=== PATIENT | male | born 1960 | race Caucasian/White ===

== ENCOUNTER 2017-07-28 16:20 | Observation (INO) ==
[2017-07-28] MEDS ORDERED: IOPAMIDOL 100 ML BOTTLE IV ONE (16:21)
[2017-07-28] MEDS ORDERED: 0.9 % SODIUM CHLORIDE 250 ML IV SCH (17:00)
--- NOTE | 2017-07-28 17:00 | Emergency Department Note ---
General Adult HPI - General Chief complaint: Shortness of Breath/Dyspnea Stated complaint: SOB Time Seen by Provider: 07/28/17 16:34 Source: patient Mode of arrival: ambulatory Limitations: no limitations - History of Present Illness HPI Narrative: 57-year-old male presents with shortness of breath 2 days. He states with any exertion he has shortness of breath. He denies any cough. He does smoke. He went to [facility] and had some blood work done and was told to come back because he has an elevated d-dimer and a hemoglobin of 6.1. His last hemoglobin was 14. He denies any black tarry stools or any blood in his urine. He has not had any bleeding that he knows of. He denies any abdominal pain at this time but states sometimes he has some cramping in his lower abdomen. He does have some wheezing. He is tachycardic. No chest pain. No history of blood clots. He does not take any medications. He does not have a primary care provider. He is not diabetic. He denies any lower extremity pain. He states he was on his way back to work before he was told he needed to come here Patient states he drinks 4 times a week about 6-7 beers a day. He does not consider himself an alcoholic. He states he used to take ibuprofen pretty frequently but has not in the last month. He states he has never noticed any dark stools. He denies any nausea or vomiting. - Related Data Home Medications Medication Instructions Recorded Confirmed No Known Home Meds [No Known Home 07/28/17 07/28/17 Meds] Allergies Allergy/AdvReac Type Severity Reaction Status Date / Time No Known Drug Allergies Allergy Unverified 07/28/17 14:35 Review of Systems All systems ED: reviewed and negative except as stated. Past Medical History - Past Medical History Medical history: Reports: non-contributory. Denies: COPD, DM Psychiatric history: Reports: no psych history Surgical history ED: Reports: non-contributory Family history: Reports: non-contributory - Social History smoking status: Current every day smoker Physical Exam Limitations: no limitations General appearance: alert, in no apparent distress Head: atraumatic Eye: Present: normal appearance. Absent: conjunctival injection Neck: Present: normal inspection, full ROM Chest: Present: normal inspection, symmetric chest wall rise Respiratory: Present: wheezes (upper lobes), other (decreased lung sounds right lower lobe) Cardiovascular: Present: tachycardia, normal heart sounds Abdominal: Present: soft, normal bowel sounds. Absent: tenderness Rectal: Present: normal rectal tone, heme (-) stool Extremities: Present: normal inspection, full ROM Neurological: Present: alert, oriented X3 Psychiatric: Present: normal affect, normal mood Skin: Present: warm, dry, intact Course Vital Signs Temperature 97.4 F 07/28/17 16:22 Pulse Rate 103 H 07/28/17 16:22 Respiratory Rate 24 H 07/28/17 16:22 Blood Pressure 170/82 07/28/17 16:22 Pulse Oximetry (%) 97 07/28/17 16:22 Temperature 97.4 F 07/28/17 16:22 Pulse Rate 101 H 07/28/17 18:24 Respiratory Rate 15 07/28/17 16:39 Blood Pressure 135/61 07/28/17 18:24 Pulse Oximetry (%) 96 07/28/17 18:24 Medical Decision Making - [facility] Narrative Medical decision making narrative: No obvious signs of bleeding at this time. Chest CT was negative for PE. Vitals have been stable but he has been tachycardic. No hypotension. He is symptomatic from being anemic and should be transfused and watched. He will be admitted observation. - Lab Data Lab results reviewed: Yes I reviewed the patient's lab results. Lab Results 07/28/17 Range/Units 17:00 POC Hct 19.0 L* (41.0-55.0) % POC Sodium 141 (133-145) mmol/L POC Potassium 4.1 (3.3-5.1) mmol/L POC Chloride 103 (96-108) mmol/L POC Total CO2 27 (22-30) mmol/L POC BUN 5 L (6-20) mg/dl POC Creatinine 0.9 (0.7-1.2) mg/dl POC Glucose 143 H (70-105) mg/dL POC WB Ioniz Calcium 1.00 L (1.16-1.32) mmol/L - Radiology Data Radiology results reviewed: Yes I reviewed the patient's radiology results. negative Disposition Pt seen by TUFTING CREELER/PA only: Yes Clinical Impression: Shortness of breath, Anemia Disposition: Xfer As Outpt/Obs ([facility]) Condition: Fair Referrals: No,PCP [Primary Care Provider] -
--- NOTE | 2017-07-28 18:17 | Cat Scan Report ---
CLINICAL INFORMATION: Shortness of breath and elevated d-dimer COMPARISON: None. TECHNIQUE: 80 cc of Isovue-300 were injected intravenously. Using SmartPrep to maximize pulmonary artery opacification, 2.5 mm helical slices were obtained from the lung apices through the lung bases. Following reconstruction, 2.5 mm sagittal, coronal, and axial reformations were processed. The exam was reviewed at mediastinal, lung, and bone windows. The exam was performed using radiation dose optimization techniques including, but not limited to, automated exposure control, adjustment of the mA and/or kV according to patient size and use of iterative reconstruction technique. FINDINGS: The pulmonary arteries are suboptimally opacified but there is no evidence of embolus. Thoracic aorta is normal in contour and caliber. There is no adenopathy in the mediastinal hilar or axillary region. The thyroid is normal. The heart is normal in size configuration without appreciable plaque in the coronary arteries. Pulmonary parenchymal windows show the lungs to be clear. There are no effusions. Bones and soft tissues the chest wall are normal IMPRESSION: Normal Interpreted and Authenticated by: Fan Snyder 07/28/17
[2017-07-28 20:23] LABS: Iron 7 mcg/dl (61-157); Transferrin % Saturation 1 % (20-50); Unsaturated Iron Binding 370 mcg/dL (112-346)
--- NOTE | 2017-07-28 20:50 | Emergency Department Note ---
ED Note Addendum Note Addendum: patient seen by candi and agree with need to consult hospitalist, Dr Dickinson, who is here to evaluate and patient will be admitted for anemia
[2017-07-28] MEDS ORDERED: ACETAMINOPHEN 325 MG TABLET PO PRN (21:27)
[2017-07-28] MEDS ORDERED: ONDANSETRON 4 MG/2 ML VIAL IV PRN (21:27)
--- NOTE | 2017-07-28 23:05 | Internal Med History&Physical ---
Medical - H&P: HPI Patient information: Note initiated : 07/28/17 at 11:04 pm Service Date, if different from initiated Date: [] Patient: Elijah Baker 57 y/o M admitted on 07/28/17 for Shortness of breath. Chief Complaint: [] Chief complaint: HAQUE and near syncope History of present illness: Mr. Baker is a 57 year old M comes in to [facility] complaining of HAQUE and lightheaded x 2 days He was sent over from there to [facility] after the labs done at [facility] showed elevated d-dimer and a hemoglobin of 6.1. His last hemoglobin was 14. February 2017. 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 He denies any black tarry stools or any blood in his urine. He has not had any bleeding that he knows of. He denies any abdominal pain at this time but states sometimes he has some cramping in his lower abdomen. He does have some wheezing. He is tachycardic. No chest pain. No history of blood clots. He does not take any medications. He does not have a primary care provider. He is not diabetic. He denies any lower extremity pain. He states he was on his way back to work before he was told he needed to come here Patient states he drinks 4 times a week about 6-7 beers a day. He does not consider himself an alcoholic. He states he used to take ibuprofen pretty frequently but has not in the last month. He states he has never noticed any dark stools. He denies any nausea or vomiting. Pt goes to bar and drinks bud light pints over about 4-5 hours at bar. Says is not drunk. Still safe to drive when he leaves. Doesnt drink at home or alone. no hard liquor - Constitutional Constitutional: Present: fatigue, weakness. Absent: anorexia - Cardiovascular Cardiovascular: Present: dyspnea on exertion. Absent: edema - Respiratory Respiratory: Present: dyspnea on exertion. Absent: cough, chest congestion - Gastrointestinal Gastrointestinal: Present: abdominal pain (lower abdomen), excessive flatus ( tonight only). Absent: change in bowel habits, change in stool character, coffee ground emesis, constipation, dyspepsia, dysphagia, heartburn, hematemesis , hematochezia, loose stools, nausea, vomiting - Hematologic/Lymphatic Hematologic/Lymphatic: Absent: easy bleeding, easy bruising Medical - H&P: PMH Medical history: denies Surgical history: knee surgery ligaments repairs bilat Family history: reviewed and not pertinent (no FH bleeding or clotting disorder) Social history: pt has been bombing house for bed bugs. Lives with his no kids. Went to [facility] and they found a bed bug in room there. He came here and did not mention bed bugs here nor there. When asked about it he admits he has bed bugs at home and thinks might be better with repeated bombs at home. Says he read about bed bugs and understands it could be a prolonged problem. Smoking status: Current some day smoker Have you smoked in the last 12 months: Yes Alcohol use: heavy (7 beers 4 times a week) Medical - H&P: Meds Home Medications Medication Instructions Recorded Confirmed Type No Known Home Meds [No Known Home 07/28/17 07/28/17 History Meds] Allergies Allergy/AdvReac Type Severity Reaction Status Date / Time No Known Drug Allergies Allergy Unverified 07/28/17 14:35 Medical - H&P: Exam - Constitutional Vitals: Temp Pulse Resp BP Pulse Ox 97.4 F 97 H 15 124/62 97 07/28/17 21:25 07/28/17 21:25 07/28/17 21:25 07/28/17 21:25 07/28/17 21:25 General appearance: cooperative, morbidly obese - Neurological Exam Neurological exam: Present: alert, altered, oriented X3 Medical - H&P: A/P (1) Infestation by bed bug Current visit: Yes Status: Acute pt will need to treat home for bed bugs and avoid spreading to others by going to public places. Needs to disclose in high traffic close contact areas like hospitals and urgent cares (2) Anemia Current visit: Yes Status: Acute guaiac all stools. transfuse 2 units and recheck cbc in morning. if stable follow up outpt with PCP and GI. iron studies sent. start PPI BID for now. - Narrative A/P Narrative: 30 mins spent in evaluation and coordination of care for this patient today. Patient placed in isolation.
[2017-07-28] MEDS: 0.9 % SODIUM CHLORIDE 10 ML SYRINGE IV SCH (23:58)
[2017-07-29] MEDS: 0.9 % SODIUM CHLORIDE 10 ML SYRINGE IV SCH ×2 (04:56→12:37)
[2017-07-29 07:39] LABS: Mean Cell Volume 73.8 fL (80.0-100.0); Mean Corpuscular HGB Conc 31.7 g/dL (31.0-36.0); Mean Corpuscular Hemoglobin 23.4 pg (26.0-34.0); Platelet Count 148 K/mcL (140-440); RBC 2.93 M/mcL (4.50-5.90); Red Cell Distribution Width 19.7 % (11.5-14.5)
[2017-07-29] MEDS ORDERED: FUROSEMIDE 20 MG/2 ML VIAL IV ONE (08:21)
[2017-07-29] MEDS ORDERED: 0.9 % SODIUM CHLORIDE 250 ML IV SCH (08:30)
[2017-07-29 09:54] LABS: Anisocytosis 1+ (NONE SEEN); Band Neutrophils % 1 % (0-10); Eosinophils % (Manual) 2 % (0-7); Hypochromasia 1+ (NONE SEEN); Lymphocytes % 10 % (15-49); Monocytes % (Manual) 8 % (1-12); Platelet Estimate NORMAL (NORMAL); RBC Morphology ABNORM (NORMAL); Segmented Neutrophils % 79 % (38-78)
[2017-07-29] MEDS: PANTOPRAZOLE 40 MG VIAL IV SCH ×2 (09:56→16:29)
[2017-07-29] MEDS: FERROUS SULFATE 325 MG TABLET PO SCH ×2 (09:56→16:29)
[2017-07-29] MEDS ORDERED: IRON SUCROSE COMPLEX 400 MG in 0.9 % SODIUM CHLORIDE 250 ML IV SCH (16:30)
[2017-07-29] MEDS ORDERED: IRON SUCROSE COMPLEX 400 MG in 0.9 % SODIUM CHLORIDE 250 ML IV ONE ×2 (16:31→18:30)
--- NOTE | 2017-07-29 16:36 | Discharge Summary ---
Medical - DS: Prov Patient information: Note initiated : 07/29/17 at 4:33 pm Service Date, if different from initiated Date: [] Patient: Elijah Baker 57 y/o M admitted on 07/28/17 for Shortness of breath. Chief Complaint: HAQUE Date of admission: 07/28/17 21:21 Discharge date: 07/29/17 Primary care physician: PCP No Admitting clinician: Luca Dickinson Attending physician on admission: Luca Dickinson Attending physician on discharge: Luca Dickinson Medical - DS: Meds - Discharge Medications Prescriptions: Pantoprazole Sodium [Protonix] 40 mg PO BID #60 tablet.dr Young and Home Medications: Home Medications No Known Home Meds [No Known Home Meds] 07/28/17 [History Confirmed 07/28/17 Last Taken Unknown] Medical - DS: Hosp Hospital course: Mr. Baker is a 57 year old M with normal HCT February 2017, drinks mod heavily at 7 bud light pints 4 days a week. Home also has bed bugs. He has been trying to bomb the bed bugs for few months. Getting better but not resolved. Pt denies nausea vomiting, melena. He has some low abd discomfort at times. No diarrhea, no hematochezia. Never had PUD, colon polyps. Never had EGD or colonoscopy. Never been anemic before. Pt found to have hct 19 and admitted for transfusion. After two unit 21.6 and after a 3rd unit now 23.7. Pt feels well at rest and only mild HAQUE now. Pt doesnt take NSAIDs. He has turned in paperwork to follow up at [facility]. I ve counseled him to professionally address the bed bugs at home and also to disclose this to medical facilities and avoid going to work at [employer] until this is resolved. Pt will receive a dose of 400mg venofer prior to discharge. CBC next week at [facility] and cont iron. Follow up for outpt EGD and colonoscopy Discharge diagnosis: Iron deficiency anemia Secondary discharge diagnosis: alcoholism bed bugs Reason for admission: Dypsnea on exertion - Time Spent with Patient Total time spent providing and/or coordinating discharge services: Greater than 30 minutes Specific discharge activities: get bed bugs treated. Quit drinking alcohol. take iron and follow up with [facility] for CBC next week. Will also need EGD and colonoscopy to look for ulcers and or cancer. Medical - DS: Exam - Constitutional Vitals: Vital Signs Temp Pulse Pulse Resp BP BP BP 07/29/17 15:50 99 F 16 152/87 07/29/17 12:00 98.7 F 84 17 150/85 07/29/17 08:00 98.1 F 90 19 166/90 07/29/17 07:04 18 07/29/17 04:00 98.3 F 101 H 18 156/80 07/29/17 01:55 94 H 07/29/17 01:24 99.4 F H 18 162/82 07/29/17 00:00 99.4 F H 20 154/79 07/28/17 23:30 99.7 F H 18 155/80 07/28/17 22:45 99.8 F H 20 168/84 07/28/17 21:25 97.4 F 97 H 15 124/62 07/28/17 20:28 97 H 124/62 07/28/17 20:17 94 H 124/62 07/28/17 20:06 96 H 133/63 07/28/17 20:02 101 H 133/63 07/28/17 19:47 94 H 136/63 07/28/17 19:32 97 H 138/59 07/28/17 19:17 96 H 130/61 07/28/17 19:02 105 H 130/64 07/28/17 18:47 97 H 124/64 07/28/17 18:32 101 H 135/65 07/28/17 18:24 101 H 135/61 07/28/17 18:20 100 H 135/61 07/28/17 17:32 108 H 145/76 07/28/17 17:20 113 H 154/78 07/28/17 17:18 123 H 162/92 07/28/17 17:16 132 H 162/137 07/28/17 17:01 116 H 172/92 07/28/17 16:39 15 149/73 07/28/17 16:38 17 149/73 Pulse Ox 07/29/17 15:50 97 07/29/17 12:00 95 07/29/17 08:00 95 07/29/17 07:04 94 07/29/17 04:00 94 07/29/17 01:55 07/29/17 01:24 94 07/29/17 00:00 94 06/08/18 23:30 95 07/28/17 22:45 97 07/28/17 21:25 97 07/28/17 20:28 97 07/28/17 20:17 94 07/28/17 20:06 95 07/28/17 20:02 100 07/28/17 19:47 96 07/28/17 19:32 93 07/28/17 19:17 95 07/28/17 19:02 97 07/28/17 18:47 93 07/28/17 18:32 94 07/28/17 18:24 96 07/28/17 18:20 95 07/28/17 17:32 96 07/28/17 17:20 97 07/28/17 17:18 98 07/28/17 17:16 97 07/28/17 17:01 96 07/28/17 16:39 07/28/17 16:38 Intake and Output 07/29/17 07/29/17 07/29/17 05:59 13:59 21:59 Intake Total 1055 / 1055 1184 / 1184 Output Total 600 / 600 Balance 1055 / 1055 1184 / 1184 -600 / -600 Intake: IV 250 / 250 44 / 44 Sodium Chloride 0.9% 250 ml @ 250 / 250 44 / 44 20 mls/hr IV .[id number] [facility] Rx#: [id number] Oral 840 / 840 Blood Product 325 / 325 300 / 300 GI Tube Flush 480 / 480 Output: Void Amount 600 / 600 Other: Meal Lunch Percent of Meal Consumed 100% Feeding Ability Independent # Voids 2 5 Medical - DS: Data Labs on day of discharge: Labs from last 24 hours 07/29/17 07/29/17 07/28/17 14:22 05:40 17:00 WBC 3.3 L RBC 2.93 L Hgb 7.4 L 6.9 L* Hct 23.7 L 21.6 L POC Hct MCV 73.8 L MCH 23.4 L MCHC 31.7 RDW 19.7 H Plt Count 148 MPV 7.7 Total Counted 100 Seg Neutrophils % 79 H Band Neutrophils % 1 Lymphocytes % 10 L Monocytes % (Manual) 8 Eosinophils % (Manual) 2 Platelet Estimate Normal RBC Morphology Abnorm A Hypochromasia 1+ A Anisocytosis 1+ A Microcytosis 2+ A POC Sodium POC Potassium POC Chloride POC Total CO2 POC BUN POC Creatinine POC Glucose POC WB Ioniz Calcium Iron 7 L TIBC 377 Unsat Iron Binding 370 H Transferrin % Sat 1 L 07/28/17 17:00 WBC RBC Hgb Hct POC Hct 19.0 L* MCV MCH MCHC RDW Plt Count MPV Total Counted Seg Neutrophils % Band Neutrophils % Lymphocytes % Monocytes % (Manual) Eosinophils % (Manual) Platelet Estimate RBC Morphology Hypochromasia Anisocytosis Microcytosis POC Sodium 141 POC Potassium 4.1 POC Chloride 103 POC Total CO2 27 POC BUN 5 L POC Creatinine 0.9 POC Glucose 143 H POC WB Ioniz Calcium 1.00 L Iron TIBC Unsat Iron Binding Transferrin % Sat Medical - DS: A/P - Patient/Caregiver Discharge Instructions Activity: increase activity as tolerated Diet: Regular Diet Additional Instructions: weight loss recommended Prescriptions: Pantoprazole Sodium [Protonix] 40 mg PO BID #60 tablet.dr - Problem Maintenance (1) Infestation by bed bug Status: Acute (2) Anemia Status: Acute Qualifiers: Anemia type: iron deficiency Iron deficiency anemia type: chronic blood loss Qualified Code(s): D50.0 - Iron deficiency anemia secondary to blood loss (chronic) - Follow up Plan Follow up with: No,PCP [Primary Care Provider] - Disposition: Home, Self-Care Prognosis: Fair Rehab Potential: Good I certify that the patient requires SNF services: No Overall status at discharge: patient is progressing back to baseline Medical - DS: Qual - VTE Deep Vein Thrombosis/Pulmonary Embolism Present on Admission: No
[2017-07-30] MEDS ORDERED: IRON SUCROSE COMPLEX 400 MG in 0.9 % SODIUM CHLORIDE 250 ML IV ONE (06:30)
== END 2017-07-29 20:15 | disposition home or self-care (01) ==
LOC: ICU 16:20 → ED 16:20 → ICU 21:25
PROVIDERS: ADMIT Internal Medicine; ATTEND Internal Medicine